=== PATIENT | male | born 1940 | race Caucasian/White ===

== ENCOUNTER → 2022-03-17 | Outpatient (CLI) | payer MEDICARE, OTHER ==
[~2022-03-17] MED LIST: ALPRAZOLAM0.5 MG PO; ISOSORBIDE MON120 MG PO; JANUVIA 100 MG100 MG PO; LEVAQUIN500 MG PO; LIPITOR TAB 2020 MG PO; NORCO 10-325 T1 EACH PO; NORVASC 5 MG TAB5 MG PO; PLAVIX 75 MG TA75 MG PO
== END ==
LOC: RT 14:15
PROVIDERS: Ophthalmology
DX: H02.132 Senile ectropion of right lower eyelid (principal)
CPT/HCPCS: 36415; 80048; 93005